=== PATIENT | female | born 1965 | race Caucasian/White ===

== ENCOUNTER 2017-11-11 18:54 | Emergency (ER) | payer OTHER ==
[~2017-11-11] VITALS: Ht 157.5 cm; Wt 64.4 kg
[~2017-11-11 18:54] MED LIST: HUMALOG100 U/ML; LANTUS SOLOSTAR3 ML
== END 2017-11-11 19:54 | disposition home or self-care (01) ==
LOC: ER 18:54
DX: R06.02 Shortness of breath (principal)

== ENCOUNTER → 2020-01-06 | Emergency (ER) | payer OTHER ==
[~2020-01-06] VITALS: Ht 157.5 cm; Wt 65.8 kg
== END | disposition home or self-care (01) ==
LOC: ER 14:57
DX: U07.1 COVID-19 (principal); R06.02 Shortness of breath